=== PATIENT | female | born 1950 | race Caucasian/White ===

== ENCOUNTER → 2018-10-07 | Outpatient (CLI) | payer MEDICARE, OTHER ==
[~2018-10-07] MED LIST: ALEN70; Altoprev20 MG; Anastrozole1 GM; B Complex1 EAC2; CALC1.25T; CHOL10002; LOSARTAN POTAS100 MG; LOVA40; MELA3; Norvasc2.5 MG; Omeprazole20 M1
== END | disposition home or self-care (01) ==
LOC: LAB 16:27 → LAB SHORT 16:27
DX: N39.0 Urinary tract infection, site not specified (principal)
CPT/HCPCS: 87077; 87086; 87186

== ENCOUNTER → 2018-11-05 | Outpatient (CLI) | payer MEDICARE, OTHER | END | disposition home or self-care (01) | LOC: PLD 11:05 → LAB SHORT 11:05 | DX: D48.5 Neoplasm of uncertain behavior of skin (principal) | CPT/HCPCS: 88305 ==

== ENCOUNTER 2020-08-23 07:52 | Day surgery (SDC) | payer MEDICARE, OTHER ==
[~2020-08-23] VITALS: Ht 165.1 cm; Wt 88.9 kg
[~2020-08-23 07:52] MED LIST changes: +AMLODIPINE BES2.5 MG PO; +ANASTROZOLE5 GM; +CALCIUM CARBON500 M2 PO; +LOSARTAN POTAS100 M1 PO; +Lovastatin20 MG PO
[2020-08-23] MEDS ORDERED: ANASTROZOLE (08:23)
[2020-08-23] MEDS ORDERED: OMEP20ER (08:24)
[2020-08-23] MEDS ORDERED: [UNRECOGNIZED DRUG - CODE] (08:24)
[2020-08-23] MEDS ORDERED: TURMERIC500 M2 (08:25)
[2020-08-23] MEDS ORDERED: ABAT250V (08:25)
[2020-08-23] MEDS ORDERED: VITAMIN D31000 UNI1 (08:25)
[2020-08-23] MEDS ORDERED: TOCO1000 (08:26)
[2020-08-23] MEDS ORDERED: MELATONIN5 M1 (08:26)
[2020-08-23] MEDS ORDERED: MAGNESIUM OXID500 MG (08:27)
--- NOTE | 2020-08-23 08:38 | NUR ---
08/23/20 0838 Franny Johnson FIRST ATTEMPT MISSED BY ZORAIDA IN THE RIGHT FOREARM. SECOND ATTEMPT SUCCESSFUL BY RN IN THE RIGHT HAND. PT LJ.
== END 2020-08-23 10:01 | disposition home or self-care (01) ==
LOC: ORSCSDS 07:52
PROVIDERS: Internal Medicine Gastroenterology
PROC: 0DBK8ZX Excision of Ascending Colon, Via Natural or Artificial Opening Endoscopic, Diagnostic (ICD-10-PCS; principal; 2020-08-23 09:00)
PROC: 0DBM8ZX Excision of Descending Colon, Via Natural or Artificial Opening Endoscopic, Diagnostic (ICD-10-PCS; principal; 2020-08-23 09:00)
DX: Z12.11 Encounter for screening for malignant neoplasm of colon (principal); D12.2 Benign neoplasm of ascending colon; D12.4 Benign neoplasm of descending colon; N81.6 Rectocele; K57.30 Diverticulosis of large intestine without perforation or abscess without bleeding; Z86.010 Personal history of colon polyps
CPT/HCPCS: 88305; J0330; J0461; J2405; J2704; J7120

== ENCOUNTER 2021-05-30 07:58 | Day surgery (SDC) | payer OTHER ==
[~2021-05-30] VITALS: Ht 165.1 cm; Wt 89.4 kg
[~2021-05-30 07:58] MED LIST changes: +ABAT250V; +ANASTROZOLE; +GABA100 PO; +LOSA50 PO; +MAGNESIUM OXID500 MG; +MELATONIN5 M1; +OMEP20ER; +TOCO1000; +TURMERIC500 M2; +VITAMIN D31000 UNI1; +[UNRECOGNIZED DRUG - CODE]
== END 2021-05-30 09:50 | disposition home or self-care (01) ==
LOC: ORSCSDS 07:58
PROVIDERS: Internal Medicine Gastroenterology
PROC: 0DB68ZX Excision of Stomach, Via Natural or Artificial Opening Endoscopic, Diagnostic (ICD-10-PCS; principal; 2021-05-30 09:15)
PROC: 0DB58ZX Excision of Esophagus, Via Natural or Artificial Opening Endoscopic, Diagnostic (ICD-10-PCS; principal; 2021-05-30 09:15)
DX: K22.70 Barrett's esophagus without dysplasia (principal); I10 Essential (primary) hypertension; E78.5 Hyperlipidemia, unspecified; E66.9 Obesity, unspecified; Z68.32 Body mass index [BMI] 32.0-32.9, adult; Z79.899 Other long term (current) drug therapy
CPT/HCPCS: 88305; 88342; J2704; J7120

== ENCOUNTER → 2023-07-07 | Outpatient (CLI) | payer OTHER | LOC: LAB 15:30 → LAB SHORT 15:30 | DX: N39.0 Urinary tract infection, site not specified (principal) | CPT/HCPCS: 87077; 87086; 87186 ==

== ENCOUNTER → 2024-10-06 | Outpatient (CLI) | payer OTHER | END | disposition home or self-care (01) | LOC: LAB 15:40 → LAB SHORT 15:40 | DX: N39.0 Urinary tract infection, site not specified (principal); R10.2 Pelvic and perineal pain; R35.0 Frequency of micturition | CPT/HCPCS: 87086 ==